=== PATIENT | female | born 1995 | race Caucasian/White ===

== ENCOUNTER 2019-04-19 18:43 | Observation (INO) | payer BC ==
[~2019-04-19] VITALS: Ht 177.8 cm; Wt 59.0 kg
[2019-04-19 18:44] VITALS: BP 112/70
[2019-04-19 19:06] LABS: URINE BILIRUBIN NEGATIVE (Negative); URINE BLOOD TRACE (Negative); URINE CLARITY CLEAR; URINE COLOR YELLOW; URINE GLUCOSE-RANDOM* NEGATIVE (Negative); URINE KETONES NEGATIVE (Negative); URINE LEUKOCYTES-REFLEX NEGATIVE (Negative); URINE NITRITE-REFLEX NEGATIVE (Negative); URINE PROTEIN (DIPSTICK) NEGATIVE (Negative); URINE UROBILINOGEN 0.2 E.U./dl (0.2-1.0)
[2019-04-19 19:26] LABS: HEMATOCRIT 40.7 % (37.0-47.0); HEMOGLOBIN 13.7 gm/dL (12.0-15.0); MCH 29.1 pg (26.0-34.0); MCHC 33.7 g/dL (28.0-37.0); MCV 86.3 fL (80.0-100.0); PLATELET COUNT 234 thou/uL (150-400); RBC 4.72 mil/uL (4.20-5.00); RDW 12.4 % (10.5-14.5); WBC 21.9 thou/uL (4.0-11.0)
[2019-04-19 19:34] LABS: CALCIUM 9.4 mg/dL (8.5-10.1); CREATININE 0.9 mg/dL (0.6-1.0); POTASSIUM 3.9 mmol/L (3.5-5.1)
[2019-04-19 19:40] LABS: ALBUMIN 4.3 g/dL (3.4-5.0); TOTAL BILIRUBIN 2.2 mg/dL (<0.1-1.0); TOTAL PROTEIN 7.5 g/dL (6.4-8.2)
[2019-04-19 19:59] LABS: ABSOLUTE NEUTROPHILS 19.9 thou/uL (1.4-8.2); ANISOCYTOSIS 1+
[2019-04-19] MEDS ORDERED: ALDACTONE100 MG PO (22:21)
[2019-04-20 01:00] LABS: HEMATOCRIT 33.3 % (37.0-47.0); HEMOGLOBIN 11.2 gm/dL (12.0-15.0); MCH 29.3 pg (26.0-34.0); MCHC 33.5 g/dL (28.0-37.0); MCV 87.5 fL (80.0-100.0); RBC 3.81 mil/uL (4.20-5.00); RDW 12.3 % (10.5-14.5); WBC 15.7 thou/uL (4.0-11.0)
[2019-04-20 15:35] VITALS: BP 95/53
[2019-04-20 17:30] VITALS: BP 95/53
--- NOTE | 2019-04-22 06:26 | O ---
[address] [address] [place] [address] OPERATIVE REPORT Name: HERBER MICHELLE Room #: 150-10 KEEGAN Sauer#: [id number] Admission: 04/19/19 Attend Phys: Ernesto Beavers, Discharge: 04/20/19 Date of : 89 Report #: [id number] THIS REPORT FOR: //name// CC: Ernesto Esparza DATE OF SERVICE: 04/20/2019 PREOPERATIVE DIAGNOSIS: Acute appendicitis. POSTOPERATIVE DIAGNOSIS: Acute appendicitis. PROCEDURE: Laparoscopic appendectomy. SURGEON: Ernesto Beavers MD ANESTHESIA: General. ESTIMATED BLOOD LOSS: Minimal. SPECIMEN: Appendix. DESCRIPTION OF PROCEDURE: After informed consent was obtained, the patient was brought to the operating room and placed supine. SCDs were placed and working, preoperative antibiotics were administered, general anesthesia was induced. The abdomen was prepped and draped in the usual sterile fashion. A 10 mm incision was made below the umbilicus. Fascia was incised and a trocar was placed. Pneumoperitoneum was established. A right upper quadrant and left lower quadrant 5 mm port was placed. Laparoscope was inserted. The appendix was grasped and retracted anteriorly. A window was made in the mesoappendix. The mesoappendix was then ligated with a MYRNA hollingsworth load stapler. The base of the appendix was then stapled with a MYRNA blue load stapler. Appendix was removed through an Endopouch. The fascia was closed with a 2-0 PDS. The skin was closed with 4-0 Monocryl. Incisions were sealed with Dermabond. COMPLICATIONS: None. DISPOSITION: The patient was taken to recovery in satisfactory condition. <ELECTRONICALLY SIGNED> By: Ernesto Beavers MD 04/22/19 0626 1722 1735 Ernesto Beavers MD /nt
--- NOTE | 2019-04-22 14:43 | PATH ---
[facility] [address] [address] PATHOLOGY RPT PROCEDURE Name: HERBER SILVERMAN Room #: 150-10 KEEGAN Sauer#: [id number] Admission: 04/19/19 Date of : [birth year] Discharge: 04/20/19 Report #: [id number] Path Case #: [id number] [facility] Accession Number: [id number] . 01 Material submitted: . appendix - APPENDIX . 01 Clinical history: . Acute appendicitis . 02 Diagnosis: Appendix, appendectomy: - Marked acute appendicitis along with marked serositis. (IUV:pit; 04/22/2019) QTP/04/22/2019 . 02 Electronically signed: . Maria Teresa Payne MD, Pathologist NPI- [id number] . 01 Gross description: . Received in formalin labeled "Herber Silverman, appendix," is an appendix measuring 5.6 cm in length by up to 0.9 cm in diameter with a moderate amount of attached mesoappendix measuring up to 1.3 cm in thickness. The appendiceal serosa is smooth and pale carlson in appearance. The proximal margin is closed with a linear staple line; this area is inked black. Serial sectioning reveals a pinpoint to patent lumen measuring up to 0.3 cm in diameter and partially filled with light brown, friable fecal material. The proximal margin and bisected distal tip are submitted in cassette A1, and the remainder of the appendix is submitted proximal-distal in cassettes A2 through A5. The mesoappendix is retained within the specimen container. ([facility]; 04/21/2019) XDC/XDC . 02 Pathologist provided ICD-10: K35.80, K65.8 . 02 CPT . 009629 Specimen Comment: A courtesy copy of this report has been sent to Specimen Comment: [phone], . Specimen Comment: Report sent to / DR LEWIS Performed at: [address] [facility], [place] [id number] MD David Baird MD Phone: [phone] [address] [address] PATHOLOGY RPT PROCEDURE Name: HERBER SILVERMAN Room #: 150-10 KEEGAN Melgar.Telly#: [id number] Admission: 04/19/19 Date of : [birth year] Discharge: 04/20/19 Report #: [id number] Path Case #: [id number] Performed at: [address], [place], [place] [id number] MD Maria Teresa Payne MD Phone: [phone]
== END 2019-04-20 18:00 | disposition home or self-care (01) ==
LOC: ER 18:43 → EROBS 22:00 → TBA 22:20 → ER 22:20 → EROBS 04-20 02:03 → TBA 04-20 16:23 → EROBS 04-20 16:23 → TBA 04-20 18:00 → EROBS 04-20 18:00
PROVIDERS: Physician Assistant; ADMIT Surgery
DX: K35.80 Unspecified acute appendicitis (principal); D72.829 Elevated white blood cell count, unspecified; R11.2 Nausea with vomiting, unspecified; R50.9 Fever, unspecified; Z79.899 Other long term (current) drug therapy
CPT/HCPCS: 50010; 50101; 50411; 50455; 50555; 51489; 52265; 52266; 53307; 53312; 53314; 54118; 56525; 56526; 62110; 62900; 70005